=== PATIENT | female | born 1980 | race Caucasian/White ===

== ENCOUNTER 2018-01-01 08:23 | Inpatient (IN) | payer OTHER ==
[~2018-01-01] VITALS: Ht 157.5 cm; Wt 63.6 kg
[2018-01-01] MEDS ORDERED: PREN1TAB60 PO (08:41)
[2018-01-01] MEDS: LACTATED RINGERS 1,000 ML IV SCH (08:51)
[2018-01-01 09:11] VITALS: BP 113/63
[2018-01-01 09:17] LABS: BASOPHILS # (AUTO) 0.02 x10^3/uL (0-0.1); BASOPHILS % (AUTO) 0 % (0-1); EOSINOPHILS # (AUTO) 0.05 x10^3/uL (0-0.4); EOSINOPHILS % (AUTO) 0 % (1-7); LYMPHOCYTES # (AUTO) 0.97 x10^3/uL (1-3.4); LYMPHOCYTES % (AUTO) 8 % (22-44); MD NO; MEAN CORPUSCULAR HEMOGLOBIN 30.8 pg (27.0-34.8); MEAN CORPUSCULAR VOLUME 90.7 fL (80-100); MONOCYTES # (AUTO) 0.22 x10^3/uL (0.2-0.8); MONOCYTES % (AUTO) 2 % (2-9); NEUTROPHILS # (AUTO) 10.68 x10^3/uL (1.8-6.8); NEUTROPHILS % (AUTO) 89 % (42-75); PLATELET COUNT 409 x10^3/uL (130-400); RED BLOOD COUNT 3.84 x10^6/uL (3.82-5.3); RED CELL DISTRIBUTION WIDTH 12.9 % (9.6-15.2)
[2018-01-01] MEDS ORDERED: PLEASE ENTER HEIGHT AND WEIGHT MC SCH (09:30)
[2018-01-01 09:31] LABS: INTERNATIONAL NORMALIZED RATIO 0.96 (0.93-1.1)
[2018-01-01 09:34] LABS: MICROSCOPIC NOT IND
[2018-01-01 09:38] LABS: AMPHETAMINE SCREEN, URINE Negative (Negative); BARBITURATE SCREEN, URINE Negative (Negative); BENZODIAZEPINE SCREEN, URINE Negative (Negative); CANNABINOID SCREEN, URINE Negative (Negative); COCAINE SCREEN, URINE Negative (Negative); METHADONE SCREEN, URINE Negative (Negative); OPIATE SCREEN, URINE Negative (Negative)
[2018-01-01] MEDS ORDERED: CALCIUM GLUCONATE 4.6 MEQ/10 ML IV PRN (10:30)
[2018-01-01] MEDS ORDERED: MAGNESIUM SULFATE PMX 2GM/50ML 50 ML IVPB ONE (10:30)
[2018-01-01] MEDS: D5%-LACTATED RINGERS 1,000 ML IV SCH ×2 (10:33→23:15)
[2018-01-01] MEDS ORDERED: MAGNESIUM SULF. PMX 20GM/500ML 500 ML IV ONE ×2 (10:35→17:06)
[2018-01-01] MEDS: MAGNESIUM SULF. PMX 20GM/500ML 500 ML IV SCH ×2 (10:38→17:08)
[2018-01-01 16:36] LABS: BASOPHILS # (AUTO) 0.02 x10^3/uL (0-0.1); BASOPHILS % (AUTO) 0 % (0-1); EOSINOPHILS % (AUTO) 0 % (1-7); LYMPHOCYTES # (AUTO) 0.96 x10^3/uL (1-3.4); LYMPHOCYTES % (AUTO) 7 % (22-44); MD NO; MEAN CORPUSCULAR HEMOGLOBIN 31.7 pg (27.0-34.8); MEAN CORPUSCULAR HGB CONC 34.2 g/dL (32.4-35.8); MEAN CORPUSCULAR VOLUME 92.7 fL (80-100); MEAN PLATELET VOLUME 7.2 fL (7.4-10.4); MONOCYTES # (AUTO) 0.12 x10^3/uL (0.2-0.8); MONOCYTES % (AUTO) 1 % (2-9); NEUTROPHILS # (AUTO) 12.84 x10^3/uL (1.8-6.8); NEUTROPHILS % (AUTO) 92 % (42-75); PLATELET COUNT 446 x10^3/uL (130-400); RED BLOOD COUNT 3.78 x10^6/uL (3.82-5.3); RED CELL DISTRIBUTION WIDTH 12.7 % (9.6-15.2)
[2018-01-01] MEDS ORDERED: ACETAMINOPHEN 325 MG TABLET ONE (21:05)
[2018-01-01] MEDS: ACETAMINOPHEN 325 MG TABLET PO PRN (21:10)
[2018-01-01] MEDS ORDERED: ONDANSETRON 2MG/ML, 2ML IVPush PRN (21:30)
[2018-01-02] MEDS ORDERED: MAGNESIUM SULF. PMX 20GM/500ML 500 ML IV ONE ×2 (03:11→13:32)
[2018-01-02] MEDS: MAGNESIUM SULF. PMX 20GM/500ML 500 ML IV SCH ×2 (03:13→15:45)
[2018-01-02] MEDS ORDERED: BETAMETHASONE 6 MG/ML, 5ML IM ONE ×2 (06:30→07:10)
[2018-01-02 08:35] VITALS: BP 101/63
[2018-01-02] MEDS ORDERED: PRENATAL VIT/IRON/FA 1 EACH TABLET ONE (09:07)
[2018-01-02] MEDS ORDERED: DOCUSATE 100 MG CAPSULE ONE (09:07)
[2018-01-02] MEDS: PRENATAL VIT/IRON/FA 1 EACH TABLET PO SCH (09:16)
[2018-01-02] MEDS: DOCUSATE 100 MG CAPSULE PO PRN (09:16)
[2018-01-02] MEDS: D5%-LACTATED RINGERS 1,000 ML IV SCH (12:18)
[2018-01-03] MEDS ORDERED: MAGNESIUM SULF. PMX 20GM/500ML 500 ML IV ONE ×2 (00:03→09:50)
[2018-01-03] MEDS: LACTATED RINGERS 1,000 ML IV SCH ×2 (00:04→13:28)
[2018-01-03] MEDS: MAGNESIUM SULF. PMX 20GM/500ML 500 ML IV SCH ×2 (00:05→09:53)
[2018-01-03] MEDS ORDERED: ACETAMINOPHEN 325 MG TABLET ONE (05:56)
[2018-01-03] MEDS: ACETAMINOPHEN 325 MG TABLET PO PRN (05:58)
[2018-01-03] MEDS ORDERED: PRENATAL VIT/IRON/FA 1 EACH TABLET ONE (08:25)
[2018-01-03] MEDS ORDERED: DOCUSATE 100 MG CAPSULE ONE (08:26)
[2018-01-03] MEDS ORDERED: FERROUS SULFATE 325 MG TABLET ONE (08:26)
[2018-01-03] MEDS: PRENATAL VIT/IRON/FA 1 EACH TABLET PO SCH (08:31)
[2018-01-03] MEDS: DOCUSATE 100 MG CAPSULE PO PRN (08:31)
[2018-01-03] MEDS: FERROUS GLUCONATE 324 MG TABLET PO SCH (08:44)
[2018-01-03] MEDS ORDERED: BISACODYL 5 MG EC TABLET PO ONE (18:30)
[2018-01-03] MEDS ORDERED: INDOMETHACIN 50 MG CAPSULE PO STA (18:41)
[2018-01-03] MEDS ORDERED: INDOMETHACIN 50 MG CAPSULE ONE (19:09)
[2018-01-04] MEDS ORDERED: PRENATAL VIT/IRON/FA 1 EACH TABLET ONE (08:47)
[2018-01-04] MEDS: PRENATAL VIT/IRON/FA 1 EACH TABLET PO SCH ×2 (08:50→08:51)
[2018-01-04] MEDS: FERROUS GLUCONATE 324 MG TABLET PO SCH ×2 (08:50→08:51)
[2018-01-04] MEDS ORDERED: LACTATED RINGERS 1,000 ML IV SCH (09:00)
[2018-01-04 09:08] VITALS: BP 109/58
[2018-01-04] MEDS ORDERED: ACETAMINOPHEN 325 MG TABLET ONE (11:49)
[2018-01-04] MEDS: ACETAMINOPHEN 325 MG TABLET PO PRN (11:51)
[2018-01-05] MEDS ORDERED: DOCUSATE 100 MG CAPSULE ONE (09:35)
[2018-01-05] MEDS ORDERED: PRENATAL VIT/IRON/FA 1 EACH TABLET ONE (09:35)
[2018-01-05] MEDS: DOCUSATE 100 MG CAPSULE PO PRN (09:37)
[2018-01-05] MEDS: PRENATAL VIT/IRON/FA 1 EACH TABLET PO SCH (09:38)
[2018-01-05] MEDS: FERROUS GLUCONATE 324 MG TABLET PO SCH (09:39)
[2018-01-05] MEDS: SODIUM CHLORIDE FLUSH 3ML SYRINGE IVF SCH ×2 (09:47→20:30)
[2018-01-06] MEDS ORDERED: PRENATAL VIT/IRON/FA 1 EACH TABLET ONE (07:35)
[2018-01-06] MEDS: SODIUM CHLORIDE FLUSH 3ML SYRINGE IVF SCH (07:37)
[2018-01-06] MEDS: FERROUS GLUCONATE 324 MG TABLET PO SCH (07:37)
[2018-01-06] MEDS: PRENATAL VIT/IRON/FA 1 EACH TABLET PO SCH (07:37)
[2018-01-06 07:54] VITALS: BP 111/57
[2018-01-07 07:10] VITALS: BP 107/57
[2018-01-07] MEDS: SODIUM CHLORIDE FLUSH 3ML SYRINGE IVF SCH ×3 (07:15→21:00)
[2018-01-07] MEDS ORDERED: DOCUSATE 100 MG CAPSULE ONE (07:36)
[2018-01-07] MEDS ORDERED: PRENATAL VIT/IRON/FA 1 EACH TABLET ONE (07:36)
[2018-01-07] MEDS: DOCUSATE 100 MG CAPSULE PO PRN (07:40)
[2018-01-07] MEDS: FERROUS GLUCONATE 324 MG TABLET PO SCH (07:40)
[2018-01-07] MEDS: PRENATAL VIT/IRON/FA 1 EACH TABLET PO SCH (07:40)
[2018-01-08 08:22] VITALS: BP 105/61
[2018-01-08] MEDS ORDERED: PRENATAL VIT/IRON/FA 1 EACH TABLET ONE (08:32)
[2018-01-08] MEDS ORDERED: DOCUSATE 100 MG CAPSULE ONE (08:33)
[2018-01-08] MEDS: DOCUSATE 100 MG CAPSULE PO PRN (08:34)
[2018-01-08] MEDS: PRENATAL VIT/IRON/FA 1 EACH TABLET PO SCH (08:34)
[2018-01-08] MEDS: FERROUS GLUCONATE 324 MG TABLET PO SCH (08:34)
[2018-01-08] MEDS: SODIUM CHLORIDE FLUSH 3ML SYRINGE IVF SCH ×2 (08:35→20:04)
[2018-01-08 20:00] VITALS: BP 105/56
[2018-01-09 07:40] VITALS: BP 110/59
[2018-01-09] MEDS ORDERED: DOCUSATE 100 MG CAPSULE ONE (07:50)
[2018-01-09] MEDS ORDERED: PRENATAL VIT/IRON/FA 1 EACH TABLET ONE (07:50)
[2018-01-09] MEDS: SODIUM CHLORIDE FLUSH 3ML SYRINGE IVF SCH (08:27)
[2018-01-09] MEDS: PRENATAL VIT/IRON/FA 1 EACH TABLET PO SCH (08:27)
[2018-01-09] MEDS: FERROUS GLUCONATE 324 MG TABLET PO SCH (08:27)
[2018-01-09] MEDS: DOCUSATE 100 MG CAPSULE PO PRN (08:27)
[2018-01-09] MEDS ORDERED: ACETAMINOPHEN 325 MG TABLET ONE (15:07)
[2018-01-09] MEDS: ACETAMINOPHEN 325 MG TABLET PO PRN (15:09)
[2018-01-09 19:53] VITALS: BP 117/70
[2018-01-10 08:35] VITALS: BP 109/57
[2018-01-10] MEDS ORDERED: PRENATAL VIT/IRON/FA 1 EACH TABLET ONE (09:17)
[2018-01-10] MEDS ORDERED: DOCUSATE 100 MG CAPSULE ONE (09:17)
[2018-01-10] MEDS ORDERED: FERROUS GLUCONATE 324 MG TABLET ONE (09:17)
[2018-01-10] MEDS: FERROUS GLUCONATE 324 MG TABLET PO SCH (09:20)
[2018-01-10] MEDS: PRENATAL VIT/IRON/FA 1 EACH TABLET PO SCH (09:20)
[2018-01-10] MEDS: DOCUSATE 100 MG CAPSULE PO PRN (09:20)
[2018-01-10] MEDS ORDERED: ACETAMINOPHEN 325 MG TABLET ONE (16:21)
[2018-01-10] MEDS: ACETAMINOPHEN 325 MG TABLET PO PRN (16:23)
[2018-01-10 19:33] VITALS: BP 109/61
[2018-01-11] MEDS ORDERED: DOCUSATE 100 MG CAPSULE ONE (07:46)
[2018-01-11] MEDS ORDERED: PRENATAL VIT/IRON/FA 1 EACH TABLET ONE (07:46)
[2018-01-11] MEDS ORDERED: FERROUS GLUCONATE 324 MG TABLET ONE (07:46)
[2018-01-11] MEDS: PRENATAL VIT/IRON/FA 1 EACH TABLET PO SCH (07:47)
[2018-01-11] MEDS: FERROUS GLUCONATE 324 MG TABLET PO SCH (07:48)
[2018-01-11] MEDS: DOCUSATE 100 MG CAPSULE PO PRN (07:48)
[2018-01-11 07:50] VITALS: BP 106/58
[2018-01-11 17:34] VITALS: BP 120/65
== END 2018-01-11 20:52 | disposition home or self-care (01) | DRG 782 ==
LOC: LDIP 08:28
PROVIDERS: ADMIT Obstetrics & Gynecology Maternal & Fetal Medicine; ATTEND Obstetrics & Gynecology Maternal & Fetal Medicine
PROC: 0T9B70Z Drainage of Bladder with Drainage Device, Via Natural or Artificial Opening (ICD-10-PCS; principal; 2018-01-01)
DX: O45.92 Premature separation of placenta, unspecified, second trimester (principal); O09.522 Supervision of elderly multigravida, second trimester; O09.812 Supervision of pregnancy resulting from assisted reproductive technology, second trimester; Z3A.24 24 weeks gestation of pregnancy
CPT/HCPCS: 36415; 76819; 80307; 81003; 83735; 85025; 85384; 85610; 85730; 86762; 86850; 86900; 87086; J0702; J2405; J3475; J7120; J7121